=== PATIENT | female | born 1980 ===

== ENCOUNTER 2024-04-29 01:37 | Inpatient (IN) | payer SELFPAY ==
[~2024-04-29] VITALS: Ht 170.2 cm; Wt 102.0 kg
[2024-04-29 02:26] LABS: BASOPHILS ABSOLUTE AUTO 0.03 K/mm3 (0.00-0.23); BASOPHILS PERCENT AUTO 0 % (0-2); EOSINOPHILS ABSOLUTE AUTO 0.11 K/mm3 (0.00-0.68); EOSINOPHILS PERCENT AUTO 1 % (0-6); Hematocrit 28.8 % (33.0-51.0); Hemoglobin 8.3 g/dL (11.5-16.0); IMMATURE GRAN ABSOLUTE AUTO 0.03 K/mm3 (0.00-0.10); IMMATURE GRAN PERCENT AUTO 0 % (0-1); LYMPHOCYTES ABSOLUTE AUTO 2.36 K/mm3 (0.84-5.20); LYMPHOCYTES PERCENT AUTO 25 % (21-46); MONOCYTES ABSOLUTE AUTO 0.55 K/mm3 (0.16-1.47); MONOCYTES PERCENT AUTO 6 % (4-13); Mean Corpuscular HGB 18.8 pg (26.0-34.0); Mean Corpuscular HGB Conc 28.8 g/dL (31.5-36.5); Mean Corpuscular Volume 65 fL (80-100); Mean Platelet Volume 9.4 fL (9.1-12.4); NEUTROPHILS PERCENT AUTO 67 % (41-73); Platelet Count 311 K/mm3 (150-400); RDW Coefficient Variation 20.4 % (11.7-14.2); RDW Standard Deviation 46.6 fL (35.1-46.3); Red Blood Cell Count 4.42 M/mm3 (3.80-5.20); White Blood Cell Count 9.38 K/mm3 (4.00-11.30)
[2024-04-29 02:55] LABS: Magnesium, Blood 1.8 mg/dL (1.6-2.4); Thyroid Stimulating Hormone 2.17 uIU/mL (0.360-4.800)
[2024-04-29 02:56] LABS: Albumin, Blood 3.4 g/dL (3.4-5.0); Albumin/Globulin Ratio 0.9 (0.8-1.8); Bilirubin, Total 0.2 mg/dL (0.1-1.0); Bun/Creatinine Ratio 21.1 (12.0-20.0); Calcium, Blood 8.4 mg/dL (8.5-10.1); Creatinine, Blood 0.66 mg/dL (0.40-1.00); Globulin, Blood 3.7 g/dL (2.2-4.0); Potassium, Blood 3.9 mmol/L (3.5-5.5); Total Protein, Blood 7.1 g/dL (6.4-8.2)
[2024-04-29 06:36] LABS: Percent Saturation 4.6 % (15.0-50.0)
[2024-04-29] MEDS ORDERED: Acetaminophen 325 MG TABLET PO PRN (06:50)
[2024-04-29] MEDS ORDERED: Ondansetron HCl 2 MG / ML 2ML Vial IV PRN (06:50)
[2024-04-29] MEDS ORDERED: FLU VACC TS2024-25(6MOS UP)/PF 45 MCG/0.5 ML SYRINGE IM SCH (06:50)
[2024-04-29 07:25] LABS: CHOL/HDL RATIO 3.5; Cholesterol 166 mg/dL (50-200); HDL Cholesterol 48 mg/dL (>39); LDL/HDL RATIO 2.1; Low Density Lipoprotein Chol 99 mg/dL (0-110); Triglycerides 94 mg/dL (30-160); Very Low Density Lipoprot Chol 18 mg/dL (6-32)
[2024-04-29] MEDS ORDERED: HydrALAZINE HCl 20 MG / ML 1ML Vial IV PRN ×2 (07:35→21:50)
--- NOTE | 2024-04-29 07:47 | NUR ---
RN TO RN REPORT RECIEVED FROM CHRISTINA DICKEY IN ED. SHE STATES PATIENT STILL IN MRI BUT WILL BRING PATIENT UP AFTER THIS IS DONE.
[2024-04-29] MEDS ORDERED: NS 250 ML IV PRN (08:10)
[2024-04-29 08:16] VITALS: BP 167/107
[2024-04-29] MEDS ORDERED: Sod Ferric Gluc Complx/Sucrose 125 MG in NS 100 ML IV SCH (09:00)
[2024-04-29] MEDS ORDERED: Aspirin 81 MG Chew PO SCH (09:00)
[2024-04-29] MEDS ORDERED: Atorvastatin 40 MG Tab PO SCH (09:00)
[2024-04-29] MEDS ORDERED: AmLODIPine Besylate 5 MG Tab PO SCH (09:00)
[2024-04-29] MEDS ORDERED: Lisinopril2.5 MG (09:10)
[2024-04-29] MEDS ORDERED: LISI20 PO (09:19)
[2024-04-29] MEDS ORDERED: HYDCHL25 PO (09:19)
[2024-04-29] MEDS ORDERED: IBUP800 PO (09:24)
--- NOTE | 2024-04-29 09:36 | NUR ---
THIS NURSE RECEIVED BEDSIDE SHIFT REPORT FROM SHEFALI RN AND ASSUMED CARE OF PT AT 0845.
[2024-04-29 09:45] VITALS: BP 174/102
--- NOTE | 2024-04-29 11:17 | NUR ---
RN TO RN REPORT GIVEN TO ABDIAS WONG RN AT 0850 WHEN SHE ASSUMED CARE OF PATIENT.
[2024-04-29 16:15] VITALS: BP 171/95
--- NOTE | 2024-04-29 18:12 | NUR ---
SHIFT SUMMARY PT A&OX4, AMB W/ 1P ASSIST, TOLERATING PO, VOIDING, AND PAIN MANAGED PER EMAR. PT CONT TO TO BE HYPERTENSIVE AND MEDICATED PER EMAR. PT ABLE TO LIFT L ARM AND PARTIALLY CLENCH FIST, BUT CONT TO C/O L SIDED WEAKNESS AND LLE NUMBNESS. PT WORKED W/ PHYSICAL AND OCCUPATIONAL THERAPY, SEE THERAPY NOTES. NO OTHER ACUTE CHANGES. CALL LIGHT WITHIN REACH AND PT ABLE TO MAKE NEEDS KNOWN.
[2024-04-29 19:41] VITALS: BP 180/109
[2024-04-29 21:11] VITALS: BP 179/102
[2024-04-29] MEDS ORDERED: AmLODIPine Besylate 5 MG Tab PO ONE (21:50)
[2024-04-30] VITALS (8 sets, daily range): BP systolic 148–181; BP diastolic 84–110
[2024-04-30 05:45] LABS: BASOPHILS ABSOLUTE AUTO 0.03 K/mm3 (0.00-0.23); BASOPHILS PERCENT AUTO 0 % (0-2); EOSINOPHILS ABSOLUTE AUTO 0.13 K/mm3 (0.00-0.68); EOSINOPHILS PERCENT AUTO 2 % (0-6); Hematocrit 29.2 % (33.0-51.0); Hemoglobin 8.4 g/dL (11.5-16.0); IMMATURE GRAN ABSOLUTE AUTO 0.04 K/mm3 (0.00-0.10); IMMATURE GRAN PERCENT AUTO 1 % (0-1); LYMPHOCYTES ABSOLUTE AUTO 2.19 K/mm3 (0.84-5.20); LYMPHOCYTES PERCENT AUTO 27 % (21-46); MONOCYTES ABSOLUTE AUTO 0.45 K/mm3 (0.16-1.47); MONOCYTES PERCENT AUTO 6 % (4-13); Mean Corpuscular HGB 18.9 pg (26.0-34.0); Mean Corpuscular HGB Conc 28.8 g/dL (31.5-36.5); Mean Corpuscular Volume 66 fL (80-100); Mean Platelet Volume 9.6 fL (9.1-12.4); NEUTROPHILS ABSOLUTE AUTO 5.34 K/mm3 (1.96-9.15); NEUTROPHILS PERCENT AUTO 65 % (41-73); Platelet Count 313 K/mm3 (150-400); RDW Coefficient Variation 20.5 % (11.7-14.2); RDW Standard Deviation 46.8 fL (35.1-46.3); Red Blood Cell Count 4.45 M/mm3 (3.80-5.20); White Blood Cell Count 8.18 K/mm3 (4.00-11.30)
[2024-04-30 06:30] LABS: Albumin, Blood 3.2 g/dL (3.4-5.0); Albumin/Globulin Ratio 0.9 (0.8-1.8); Bilirubin, Total 0.3 mg/dL (0.1-1.0); Bun/Creatinine Ratio 15.6 (12.0-20.0); Calcium, Blood 8.9 mg/dL (8.5-10.1); Creatinine, Blood 0.64 mg/dL (0.40-1.00); Globulin, Blood 3.6 g/dL (2.2-4.0); Magnesium, Blood 2.1 mg/dL (1.6-2.4); Potassium, Blood 3.7 mmol/L (3.5-5.5); Total Protein, Blood 6.8 g/dL (6.4-8.2)
--- NOTE | 2024-04-30 06:33 | NUR ---
JEEP DRIVER SUMMARY PT A/OX4. PLEASANT AND COOPERATIVE. PT ADMIT FOR STROKE WITH LEFT SIDE WEAKNESS. PT ABLE TO MAKE NEEDS KNOWN. PT BLOOD PRESSURE ELEVATED T/O THE SHIFT. [place] START OF SHIFT PRESSURE 180/109. MED WITH PRN HYDRALAZINE WITH LITTLE IMPROVEMENT IN 1.5 HOURS--BP RECHECK 179/102. CALL TO BOAT REPAIRER/DR FERGUSON; NEW ORDER FOR ONE TIME NORVASC 5MG AND INCREASE INTERVAL OF HYDRALAZINE TO Q4 HOURS WITH SAME PARAMETERS OF SYS GREATER THAN 180. PT DENIES HEADACHE OR NAUSEA. Q4 NEURO CHECKS COMPETE. PT LEFT ARM REMAINS VERY WEAK; PT ASSIST LEFT ARM WITH MOVEMENT; NO CAR BRACER STRENGTH. PT LEFT LEFT SEEMS IMPROVED AGAINST RESISTANCE BUT DIMINISHED FROM RIGHT SIDE COMPARISON. PT DENIES PAIN. ABLE TO MAKE NEEDS KNOWN. CALL LIGHT ACCESSIBLE.
[2024-04-30] MEDS ORDERED: Lisinopril 10 MG Tab PO SCH (09:00)
--- NOTE | 2024-04-30 19:46 | NUR ---
SHIFT SUMMARY- PT ALERT AND ORIENTED, 1PA WITH AMBULATION AND TRANSFERS. PT IS AWARE OF HER NEED FOR HELP WITH MOVEMENT. SHE USES THE CALL LIGHT APPROPRIATELY. AT THE TIME OF BEDSIDE REPORT THE PT IS IN BED, CALL LIGHT IN REACH NO S&S OF DISTRESS NOTED. PT ON TELE NSR. PT HAS COMMUNICATED HER DESIRE TO WORK WITH THERAPY AND GET BETTER. SHE WAS DOING EXERCISES INDEPENDENTLY IN THE ROOM, SHE WANTS TO GO TO [facility] AT DISCHARGE.
--- NOTE | 2024-05-01 03:55 | NUR ---
SHIFT SUMMARY PT IS A&O X4, SPEECH IS CLEAR. PERRLA. MOTOR STRENGHT LEFT ARM/HAND: 2/, LEFT LEG/FOOT 3/. @HS PT AMBULATING ON THE HALLWAY, USING FWW AND STANDBY ASSISTED BY SO. PRN TYLENOL ADMINISTERED FOR RIGHT SCIATIC PAIN. NO ACUTE EVENTS/DISTRESS NOTED/REPORTED DURING THIS SHIFT. BED AT THE LOWEST POSITION, CALL LIGHT W/I REACH. PT IS ABLE TO MAKE HER NEEDS KNOWN.
[2024-05-01 04:17] VITALS: BP 145/89
[2024-05-01 07:23] VITALS: BP 139/94
[2024-05-01] MEDS ORDERED: Iron Polysaccharides Complex 150 MG Cap PO SCH (09:00)
[2024-05-01 09:42] VITALS: BP 157/106
[2024-05-01 15:38] VITALS: BP 152/85
--- NOTE | 2024-05-01 16:51 | NUR ---
SHIFT SUMMARY- PT HAS HAD NO ACUTE CHANGE T/O THE DAY. PT SO REQUESTED A HARD COPY SCRIPT FOR PHYSICAL THERAPY WHEN THE PT IS DISCHARGED. OF NOTE, ON ASSESSMENT THE LEFT PEDAL PULSE WAS MORE DIFFICULT TO PALPATE THIS MORNING BUT WAS EASILY FOUND WITH DOPPLER. REPORT COMPLETED WITH DAYSHIFT CHRISTINA SEPULVEDA, SHE IS ASSUMING CARE OF PT FOR THE REMAINDER OF THE SHIFT.
[2024-05-01 19:16] VITALS: BP 135/83
[2024-05-02 04:35] VITALS: BP 137/93
--- NOTE | 2024-05-02 05:25 | NUR ---
Patient alert and oriented, VSS, resting comfortably in bed. Patient reported pain to lower back, PRN tylenol given once by request with moderate relief. Patient ambulating to restroom independently, left sided weakness continues.
[2024-05-02 07:26] VITALS: BP 151/99
[2024-05-02] MEDS ORDERED: Lisinopril 20 MG Tab PO SCH (09:00)
[2024-05-02] MEDS ORDERED: AMLO5 PO (12:07)
[2024-05-02] MEDS ORDERED: ATOR40TA PO (12:08)
[2024-05-02] MEDS ORDERED: ASPI81CH PO (12:08)
[2024-05-02] MEDS ORDERED: FERRIC X-150150 M1 PO (12:09)
--- NOTE | 2024-05-02 14:30 | NUR ---
PT DISCHARGED TO HOME. PT WHEELED DOWN BY BOYFRIEND. PT INSTRUCTED AND PROVIDED WITH DISCHARGE INSTRUCTIONS. ALL VALUABLES RETURNED AND SENT WITH THE PT.
== END 2024-05-02 14:45 | disposition home or self-care (01) | DRG 65 ==
LOC: ER 01:37 → MEDS 01:38 → ENPENDDIS 05-02 11:03 → MEDS 05-02 14:45
PROVIDERS: Student in an Organized Health Care Education/Training Program; ADMIT Student in an Organized Health Care Education/Training Program
DX: I63.81 Other cerebral infarction due to occlusion or stenosis of small artery (principal); G81.94 Hemiplegia, unspecified affecting left nondominant side; I10 Essential (primary) hypertension; M54.30 Sciatica, unspecified side; D50.9 Iron deficiency anemia, unspecified; F12.90 Cannabis use, unspecified, uncomplicated; Z87.442 Personal history of urinary calculi
CPT/HCPCS: 36415; 70450; 70496; 70498; 70551; 80053; 80061; 82728; 83540; 83550; 83735; 84443; 85025; 93005; 93010; 93306; 96365; 96375; 96376; 97112; 97116; 97162; 97165; 97530; 97535; 99285-25; A9270; G0378; J0360; J2916; J7050; Q9967